=== PATIENT | male | born 1975 | race Caucasian/White ===

== ENCOUNTER 2016-07-14 21:18 | Emergency (ER) | payer MEDICARE, OTHER ==
[~2016-07-14 21:18] MED LIST: ABILIFY15 MG PO; ATIVAN0.5 MG PO; B-121000 MCG PO; BACTROBAN CREAM15 GM EXT; BENADRYL 25MG C25 MG PO; CELEXA10 MG PO; COLACE 100MG C100 MG PO; DRISDOL50000 UNIT PO; ENSURE PLUS FIBE1 EA PO; FISH OIL-OMEGA1 EACH PO; GLUCOPHAGE500 MG PO; PETROLEUM JELL368 GM TP; PRILOSEC OTC20 MG PO; TRIAMCINOLONE A15 GM TP; TRICOR145 MG PO; TRIHEXYPHENIDYL2 MG PO; VENTOLIN/PROVE0.5 ML INH; VITAMIN C 500500 MG PO
== END 2016-07-17 16:40 | disposition short-term general hospital (02) ==
LOC: ER1 21:18
DX: F29 Unspecified psychosis not due to a substance or known physiological condition (principal); S00.03XA Contusion of scalp, initial encounter; F20.9 Schizophrenia, unspecified; X58.XXXA Exposure to other specified factors, initial encounter
CPT/HCPCS: 70450; 82962; 96372; 99285; J1200; J1630; J2060; J3486